=== PATIENT | male | born 1995 | race Caucasian/White ===

== ENCOUNTER 2020-11-22 19:32 | Emergency (ER) | payer OTHER ==
--- NOTE | 2020-11-22 20:37 | RAD REPORT ---
EXAM DESCRIPTION: RAD - Forearm Right - 11/22/2020 8:06 pm CLINICAL HISTORY: trauma COMPARISON: No comparisons FINDINGS: No fracture is identified. There is no dislocation or periosteal reaction noted. No air or foreign body in the soft tissues. Soft tissue contusion or edema changes are evident in the distal forearm. IMPRESSION: Negative right forearm examination for acute bone or joint finding. No air or foreign body in the soft tissues.
[2020-11-22 20:50] LABS: Absolute Lymphocytes (CBC) 1.6 K/uL (0.7-4.9); Basophils % 0.6 % (0-1.3); Hematocrit 44.1 % (39.6-49.0); Lymphocytes % 24.5 % (15.3-44.8); MPV 8.9 fL (7.6-11.3); RBC Red Blood Cell Count 5.05 M/uL (4.33-5.43)
[2020-11-22] MEDS ORDERED: TETANUS & DIPHTHERIA TOX,ADULT 0.5 ML VIAL ONE (20:58)
[2020-11-22 21:03] LABS: Protime INR 1.24
[2020-11-22 21:12] LABS: ALT/SGPT 27 U/L (12-78); AST/SGOT 22 U/L (15-37); Albumin 4.2 g/dL (3.4-5.0); Alkaline Phosphatase 65 U/L (45-117); BUN Blood Urea Nitrogen 15 mg/dL (7-18); Bicarbonate 28 mmol/L (21-32); Bilirubin Direct 0.1 mg/dL (0-0.2); Bilirubin Total 0.6 mg/dL (0.2-1.0); Glucose Level 85 mg/dL (74-106); Potassium 3.7 mmol/L (3.5-5.1); Sodium Level 139 mmol/L (136-145)
[2020-11-22 22:56] LABS: Barbiturates NEGATIVE (NEGATIVE); Benzodiazepines NEGATIVE (NEGATIVE); Cocaine NEGATIVE (NEGATIVE); METHAMPHETAM NEGATIVE (NEGATIVE); Methadone NEGATIVE (NEGATIVE); Opiates NEGATIVE (NEGATIVE); Phencyclidine NEGATIVE (NEGATIVE); THC Cannibis NEGATIVE (NEGATIVE)
--- NOTE | 2020-11-22 23:13 | ER ---
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 Coronavirus screen: Client denies travel out of the [place] in the last 14 days. Ebola Screen: No symptoms or risks identified at this time. Initial Sepsis Screen: Does the patient meet any 2 criteria? No. Patient's initial sepsis screen is negative. Does the patient have a suspected source of infection? No. Patient's initial sepsis screen is negative. Risk Assessment: Do you want to hurt yourself or someone else? Patient reports no desire to harm self or others. Onset of symptoms was November 22, 2020. 22:54 Method Of Arrival: EMS: [facility] 22:54 Acuity: PRINCE 3 fu Historical: - Allergies: 23:00 No Known Allergies; fu - Home Meds: 23:00 None [Active]; fu - PMHx: 23:00 None; fu - PSHx: 23:00 None; fu - Immunization history:: Adult Immunizations not up to date. - Social history:: Smoking status: Patient denies any tobacco usage or history of. Screenin:00 Abuse screen: Denies threats or abuse. Nutritional screening: No deficits noted. fu Tuberculosis screening: No symptoms or risk factors identified. Fall Risk None identified. Assessment: 20:00 General: Appears in no apparent distress. Behavior is calm, cooperative, appropriate fu for age, Denies fever, feeling ill, fatigue, chills. Pain: Complains of pain in right forearm Pain does not radiate. Pain currently is 3 out of 10 on a pain scale. Pain began 30 min ago. Aggravated by movement. Neuro: Level of Consciousness is awake, alert, obeys commands, Oriented to person, place, time, Services Mgr are on right hand. Gait is steady, Speech is normal, Facial symmetry appears normal. Cardiovascular: Denies chest pain, nausea, vomiting. Respiratory: Airway is patent Respiratory effort is even, unlabored, Respiratory pattern is regular, symmetrical. GI: No signs and/or symptoms were reported involving the gastrointestinal system. : No signs and/or symptoms were reported regarding the genitourinary system. EENT: No signs and/or symptoms were reported regarding the EENT system. Derm: abrasion and swelling to right forearm noted. 20:30 Reassessment: abrasion wound on the right forearm cleaned. fu 22:40 Reassessment: Received soni from Wendy Lima, patient employer's product support sales representative asking fu if we we can do drug screen for the patient, MD notified. 23:15 Reassessment: patient refusing Morphine and Zofran IV, MD aware. fu 23:18 Reassessment: triple antibiotic applied to right forearm wound and wrapped with mony fu bandage as per MD's advise. Vital Signs: 20:00 BP 128 / 83; Pulse 81; Resp 18; Temp 98.4(O); Pulse Ox 99% on R/A; Pain 3/10; fu 22:54 BP 121 / 74; Pulse 77; Resp 18; Temp 98.6(O); Pulse Ox 99% on R/A; Pain 3/10; fu 23:11 BP 132 / 87; Pulse 82; Resp 16; Pulse Ox 100% on R/A; Pain 0/10; fu ED Course: 19:34 Patient arrived in ED. mw2 19:39 David Capone MD is Attending Physician. mh7 19:43 Ho Pink, RN is Primary Nurse. fu 20:00 Inserted saline lock: 20 gauge in left antecubital area, using aseptic technique. Blood fu collected. 20:05 Forearm Right XRAY In Process Unspecified. EDMS 21:36 CT Chest, Abdomen, Pelvis - W/Contrast In Process Unspecified. EDMS 22:34 UDS Sent. fu 22:59 Triage completed. fu 23:00 Patient mony wrap to right forearm. fu 23:12 Patient has correct armband on for positive identification. Bed in low position. Call fu light in reach. 23:18 Pulse ox on. NIBP on. fu 23:20 ETOH Level Sent. fu 23:56 No provider procedures requiring assistance completed. fu 23:56 Patient did not have IV access during this emergency room visit. IV discontinued, fu bleeding controlled, Pressure dressing applied. Administered Medications: 20:45 Drug: Tetanus-Diphtheria Toxoid Adult 0.5 ml {Review Engineer: [employer]. Exp: 11/16/2021. Lot #: [id number]. } Route: IM; Site: left deltoid; 21:45 Follow up: Response: No adverse reaction fu 23:21 Not Given (Patient Refused; MD aware): morphine 4 mg IVP once; RASS on ADMIN: Combtv4, fu Very Agttd3, Agttd2, Rstlss1, AlertClm0, Drwsy-1, Lt Sdtn-2, Mod Sdtn-3, Dp Sdtn-4, UnArsble-5 23:21 Not Given (Patient Refused; MD aware): Zofran (Ondansetron) 4 mg IVP once; over 2 fu minutes Outcome: 23:12 Discharge ordered by MD. geller 23:57 Discharged to home ambulatory. fu 23:57 Condition: good 23:57 Discharge instructions given to patient, Instructed on discharge instructions, follow up and referral plans. Demonstrated understanding of instructions, follow-up care. 23:58 Patient left the ED. fu Signatures: Dispatcher [employer] EDMS Ho Pink RN RN Ben Butcher mw2 David Capone MD MD 7
--- NOTE | 2020-11-22 23:13 | EDPHYS ---
Physician Documentation [facility] Name: Oscar Duran Age: 25 yrs Sex: Male : 1995 Arrival Date: 11/22/2020 Time: 19:34 Bed 19 Private MD: ED Physician David Capone HPI: 11/22 20:15 This 25 yrs old Male presents to ER via Unassigned with complaints of Right mh7 Forearm Injury. 20:16 The patient or guardian complains of injury, pain, that is acute, swelling, tenderness. mh7 The complaints affect the right forearm. Context: The problem was sustained at work, resulted from a direct blow, from a heavy object. Onset: The symptoms/episode began/occurred just prior to arrival, today. Treatment prior to arrival includes: no previous treatment. Modifying factors: The symptoms are alleviated by nothing. the symptoms are aggravated by movement. Associated signs and symptoms: Pertinent positives: pain, swelling, abrasions, right lower chest pain from indirect impact, of the right forearm. Severity of symptoms: At their worst the symptoms were moderate, earlier today, in the emergency department the symptoms have improved, mildly. 20:16 States that a heavy portion broke off of a large metal object at woke and hit his right mh7 forearm. Denies any head injury or LOC. Also has right lower chest wall pain due to indirect impact of object to that area. He denies any other complaints.. Historical: - Allergies: 23:00 No Known Allergies; fu - Home Meds: 23:00 None [Active]; fu - PMHx: 23:00 None; fu - PSHx: 23:00 None; fu - Immunization history:: Adult Immunizations not up to date. - Social history:: Smoking status: Patient denies any tobacco usage or history of. ROS: 20:16 Constitutional: Negative for fever, chills, and weight loss, Eyes: Negative for injury, mh7 pain, redness, and discharge, ENT: Negative for injury, pain, and discharge, Neck: Negative for injury, pain, and swelling, Respiratory: Negative for shortness of breath, cough, wheezing, and pleuritic chest pain, Abdomen/GI: Negative for abdominal pain, nausea, vomiting, diarrhea, and constipation, Back: Negative for injury and pain, : Negative for injury, bleeding, discharge, and swelling, Neuro: Negative for headache, weakness, numbness, tingling, and seizure, Psych: Negative for depression, anxiety, suicide ideation, homicidal ideation, and hallucinations, Allergy/Immunology: Negative for hives, rash, and allergies, Endocrine: Negative for neck swelling, polydipsia, polyuria, polyphagia, and marked weight changes, Hematologic/Lymphatic: Negative for swollen nodes, abnormal bleeding, and unusual bruising. Exam: 20:16 Constitutional: This is a well developed, well nourished patient who is awake, alert, mh7 and in no acute distress. Head/Face: Normocephalic, atraumatic. Eyes: Pupils equal round and reactive to light, extra-ocular motions intact. Lids and lashes normal. Conjunctiva and sclera are non-icteric and not injected. Cornea within normal limits. Periorbital areas with no swelling, redness, or edema. Neck: Trachea midline, no thyromegaly or masses palpated, and no cervical lymphadenopathy. Supple, full range of motion without nuchal rigidity, or vertebral point tenderness. No Meningismus. 20:16 Cardiovascular: Regular rate and rhythm with a normal S1 and S2. No gallops, murmurs, or rubs. Normal PMI, no JVD. No pulse deficits. Respiratory: Lungs have equal breath sounds bilaterally, clear to auscultation and percussion. No rales, rhonchi or wheezes noted. No increased work of breathing, no retractions or nasal flaring. Abdomen/GI: Soft, non-tender, with normal bowel sounds. No distension or tympany. No guarding or rebound. No evidence of tenderness throughout. Back: No spinal tenderness. No costovertebral tenderness. Full range of motion. 20:16 Neuro: Awake and alert, GCS 15, oriented to person, place, time, and situation. Cranial nerves II-XII grossly intact. Motor strength 5/5 in all extremities. Sensory grossly intact. Cerebellar exam normal. Normal gait. Psych: Awake, alert, with orientation to person, place and time. Behavior, mood, and affect are within normal limits. 20:16 Chest/axilla: Inspection: normal, Palpation: tenderness, that is mild, of the right lower chest, that partially reproduces the patient's complaints, Axilla: are normal, Lymph nodes: lymphadenopathy is not appreciated. 20:16 Musculoskeletal/extremity: Extremities: noted in the right dorsal forearm: abrasion, swelling, tenderness, ROM: intact in all extremities, Circulation is intact in all extremities. Sensation intact. Compartment Syndrome exam of affected extremity: is normal. no numbness, no tingling, no sensation deficit, no palor, no weak pulses, Joints: All joints appear normal with full range of motion. Weight bearing: able to fully bear weight, without difficulty, Tendon exam: specific tendon testing normal through active and passive range of motion 20:16 Skin: injury, abrasion(s), small abrasion noted, of the right dorsal forearm. Vital Signs: 20:00 BP 128 / 83; Pulse 81; Resp 18; Temp 98.4(O); Pulse Ox 99% on R/A; Pain 3/10; fu 22:54 BP 121 / 74; Pulse 77; Resp 18; Temp 98.6(O); Pulse Ox 99% on R/A; Pain 3/10; fu 23:11 BP 132 / 87; Pulse 82; Resp 16; Pulse Ox 100% on R/A; Pain 0/10; fu MDM: 23:10 Differential diagnosis: dislocation, open fracture, closed fracture, contusion, mh7 abrasion. Data reviewed: vital signs, nurses notes, lab test result(s), CBC, electrolytes, radiologic studies, CT scan, plain films. Data interpreted: Pulse oximetry: on room air is 99 %. Interpretation: normal. Counseling: I had a detailed discussion with the patient and/or guardian regarding: the historical points, exam findings, and any diagnostic results supporting the discharge/admit diagnosis, lab results, radiology results, the need for outpatient follow up, to return to the emergency department if symptoms worsen or persist or if there are any questions or concerns that arise at home. Response to treatment: the patient's symptoms have markedly improved after treatment. 23:12 Patient medically screened. [facility] 11/22 19:48 Order name: Basic Metabolic Panel; Complete Time: 22:11 [facility] 11/22 19:48 Order name: CBC with Diff; Complete Time: 20:56 [facility] 11/22 19:48 Order name: Type And Screen; Complete Time: 22:11 [facility] 11/22 19:48 Order name: LFT's; Complete Time: 22:11 [facility] 11/22 19:48 Order name: Protime (+inr); Complete Time: 22:11 [facility] 11/22 19:48 Order name: Ptt, Activated; Complete Time: 22:11 [facility] 11/22 19:49 Order name: Forearm Right XRAY; Complete Time: 20:56 [facility] 11/22 19:50 Order name: CT Chest, Abdomen, Pelvis - W/Contrast [facility] 11/22 21:32 Order name: ABO/RH no charge; Complete Time: 22:11 [facility] 11/22 22:14 Order name: UDS [facility] 11/22 22:51 Order name: ETOH Level 11/22 22:51 Order name: Alcohol Serum/Plasma [facility] 11/22 19:48 Order name: Labs collected and sent; Complete Time: 20:32 [facility] Administered Medications: 20:45 Drug: Tetanus-Diphtheria Toxoid Adult 0.5 ml {Salesforce Consultant: [employer]. Exp: 11/16/2021. Lot #: [id number]. } Route: IM; Site: left deltoid; 21:45 Follow up: Response: No adverse reaction fu 23:21 Not Given (Patient Refused; MD aware): morphine 4 mg IVP once; RASS on ADMIN: Combtv4, fu Very Agttd3, Agttd2, Rstlss1, AlertClm0, Drwsy-1, Lt Sdtn-2, Mod Sdtn-3, Dp Sdtn-4, UnArsble-5 23:21 Not Given (Patient Refused; MD aware): Zofran (Ondansetron) 4 mg IVP once; over 2 fu minutes Disposition: 11/22/20 23:12 Discharged to Home. Impression: Right Forearm Contusion, Right forearm Abrasions, Chest Wall Contusion. - Condition is Stable. - Discharge Instructions: Contusion, [id number], Chest Contusion, [id number], Abrasion, [id number]. - Work release form, Medication Reconciliation Form, Thank You Letter, Antibiotic Education, Prescription Opioid Use form. - Follow up: Private Physician; When: 1 - 2 days; Reason: Worsening of condition, Recheck today's complaints, Continuance of care, Re-evaluation by your physician. - Problem is new. - Symptoms have improved. Signatures: Dispatcher [employer] EDRI Ho Pink RN RN David Montanez MD MD mh7 Corrections: (The following items were deleted from the chart) 23:58 23:12 11/22/2020 23:12 Discharged to Home. Impression: Right Forearm Contusion; Right fu forearm Abrasions; Chest Wall Contusion. Condition is Stable. Forms are Medication Reconciliation Form, Thank You Letter, Antibiotic Education, Prescription Opioid Use. Follow up: Private Physician; When: 1 - 2 days; Reason: Worsening of condition, Recheck today's complaints, Continuance of care, Re-evaluation by your physician. Problem is new. Symptoms have improved. mh7
[2020-11-23 00:43] VITALS: TEMP 98.6
[2020-11-23 00:44] VITALS: BP 132/87; O2SAT 100
--- NOTE | 2020-11-24 10:09 | RAD REPORT ---
EXAM DESCRIPTION: CT Chest, Abdomen and Pelvis With Intravenous Contrast CLINICAL HISTORY: The patient is 25 years old and is Male; TRAUMA TECHNIQUE: Axial computed tomography images of the chest, abdomen and pelvis with intravenous contra st. Sagittal and coronal reformatted images were created and reviewed. This CT exam was performed using one or more of the following dose reduction techniques: automated exposure control, adjustme nt of the mA and/or kV according to patient size, and/or use of iterative reconstruction technique. DLP: 1765 mGy*cm COMPARISON: None. FINDINGS: CHEST: LUNGS: Unremarkable. No mass. No consolidation. PLEURAL SPACE: Unremarkable. No significant effusion. No pneumothorax. HEART: Unremarkable. No cardiomegaly. No significant pericardial effusion. ABDOMEN: LIVER: Unremarkable. No mass. GALLBLADDER AND BILE DUCTS: Unremarkable. No calcified stones. No ductal dilation. PANCREAS: Unremarkable. No ductal dilation. No mass. SPLEEN: Unremarkable. No splenomegaly. ADRENALS: Unremarkable. No mass. KIDNEYS AND URETERS: Unremarkable. No hydronephrosis. No solid mass. STOMACH AND BOWEL: Unremarkable. No obstruction. No mucosal thickening. PELVIS: APPENDIX: The appendix is seen and is within normal limits. BLADDER: Unremarkable. No mass. REPRODUCTIVE: Unremarkable as visualized. CHEST, ABDOMEN and PELVIS: INTRAPERITONEAL SPACE: Unremarkable. No significant fluid collection. No free air. BONES/JOINTS: Unremarkable. No acute fracture. No dislocation. SOFT TISSUES: Unremarkable. VASCULATURE: Unremarkable. No aortic aneurysm. LYMPH NODES: Unremarkable. No enlarged lymph nodes. IMPRESSION: No acute intrathoracic, abdominal and pelvic abnormality. Electronically signed by: Fernando Quiroz DO 11/22/2020 10:30 PM CDT Due to temporary technical issues with the PACS/Fluency reporting system, reports are being signed by the in house radiologists without review as a courtesy to insure prompt reporting. The interpreting radiologist is fully responsible for the content of the report.
== END 2020-11-22 23:58 | disposition home or self-care (01) ==
LOC: ER 19:32
DX: S50.811A Abrasion of right forearm, initial encounter (principal); S20.219A Contusion of unspecified front wall of thorax, initial encounter; W22.8XXA Striking against or struck by other objects, initial encounter; Y92.89 Other specified places as the place of occurrence of the external cause; Y99.8 Other external cause status; Z23 Encounter for immunization
CPT/HCPCS: 85025; 80048; 36415; 80320; 86900; 86850; 85610; 86901; 80076; 80307 ×8; 85730; 71260; 74177; 73090; 90714; Q9967; 82565; 90471; 99284